=== PATIENT | male | born 1985 | race Caucasian/White ===

== ENCOUNTER 2017-09-18 10:33 | Day surgery (SDC) | payer OTHER ==
[2017-09-18] MEDS ORDERED: HEPARIN 10,000 UNIT/10 ML MDV (1,000 UNIT/ML) IVP PRN (11:52)
[2017-09-18] MEDS ORDERED: fentaNYL 100 MCG/2 ML INJ IVP PRN (11:52)
[2017-09-18] MEDS ORDERED: FLUMAZENIL 0.5 MG/5 ML MDV IVP PRN (11:52)
[2017-09-18] MEDS ORDERED: MEPERIDINE 25 MG/ML SYR IVP PRN (11:52)
[2017-09-18] MEDS ORDERED: PROTAMINE SULFATE 50 MG/5 ML VIAL IVP PRN (11:52)
[2017-09-18] MEDS ORDERED: NALOXONE HCL 0.4 MG/ML INJ IVP PRN (11:52)
[2017-09-18] MEDS ORDERED: MIDAZOLAM 2 MG/2 ML VIAL IVP PRN (11:52)
[2017-09-18] MEDS ORDERED: NS 1,000 ML IV SCH (12:00)
[2017-09-18] MEDS ORDERED: fentaNYL 100 MCG/2 ML INJ ONE (12:00)
[2017-09-18] MEDS ORDERED: MIDAZOLAM 2 MG/2 ML VIAL ONE (12:00)
[2017-09-18] MEDS ORDERED: FLUMAZENIL 0.5 MG/5 ML MDV IVP ONE (12:00)
[2017-09-18] MEDS ORDERED: NALOXONE HCL 0.4 MG/ML INJ ONE (12:00)
--- NOTE | 2017-09-18 12:19 | PDPROPOC ---
Sedation Plan of Care Sedation Plan of Care: vital signs stable, mental status noted, patient educated of risks, benefits, alternatives, patient can tolerate sedation ASA Classification: ASA 1 Planned drugs: fentanyl, midazolam Mallampati Score: Class 1 Mallampati Reference Image: Patient passed 3-3-2 rule?: Yes
--- NOTE | 2017-09-18 12:19 | PDHPUP ---
History & Physical Update H&P update statement: This history and physical update is based on an assessment of the patient which was completed after admission or registration (within 24 hours), but prior to the surgery/procedure. H&P update: H&P reviewed & patient examined, no change in patient's condition since H&P completed
[2017-09-18] MEDS ORDERED: IOPAMIDOL (ISOVUE-300) 100 ML BTL ONE (12:47)
[2017-09-18 13:09] VITALS: BP 128/72
[2017-09-18] MEDS ORDERED: ONDANSETRON 4 MG/2 ML VIAL IVP PRN (13:12)
[2017-09-18] MEDS ORDERED: OXYCODONE/APAP 5/325 TAB PO PRN (13:12)
== END 2017-09-18 16:39 | disposition home or self-care (01) ==
LOC: FIMAGING 10:33
PROVIDERS: ATTEND Neurological Surgery
PROC: B3151ZZ Fluoroscopy of Bilateral Common Carotid Arteries using Low Osmolar Contrast (ICD-10-PCS; principal; 2017-09-18)
PROC: B3121ZZ Fluoroscopy of Left Subclavian Artery using Low Osmolar Contrast (ICD-10-PCS; principal; 2017-09-18)
PROC: B31G1ZZ Fluoroscopy of Bilateral Vertebral Arteries using Low Osmolar Contrast (ICD-10-PCS; principal; 2017-09-18)
PROC: B3111ZZ Fluoroscopy of Right Brachiocephalic-Subclavian Artery using Low Osmolar Contrast (ICD-10-PCS; principal; 2017-09-18)
PROC: B3181ZZ Fluoroscopy of Bilateral Internal Carotid Arteries using Low Osmolar Contrast (ICD-10-PCS; principal; 2017-09-18)
DX: G93.9 Disorder of brain, unspecified (principal)
CPT/HCPCS: 36224; 36226; 99152; 99153; C1769; C1894; J1644; J2250; J2310; J2405; J3010; Q9967